=== PATIENT | female | born 1965 | race Caucasian/White ===

== ENCOUNTER 2016-11-29 15:16 | Emergency (ER) | payer BC ==
[~2016-11-29] VITALS: Ht 160 cm; Wt 112.1 kg
[~2016-11-29 15:16] MED LIST: ALBU18002 INH; EPP3/2 IM
[2016-11-29 15:18] VITALS: Ht 160 cm; Wt 112.1 kg
[2016-11-29] MEDS ORDERED: KETOROLAC TROMETHAMINE 30 MG/ML VIAL IV STA (15:25)
[2016-11-29] MEDS ORDERED: SODIUM CHLORIDE 0.9% 1000ML 1,000 ML IV STA (15:25)
[2016-11-29 16:14] LABS: BASO % 0.2 %; BASO ABS # 0.02 K/uL (0-0.2); COMPLETE YES; HEMATOCRIT 47.3 % (37-47); IG% 0.1 %; LYMPH ABS # 2.02 K/uL (1.2-3.4); MEAN CELL VOLUME 88.6 fL (80-100); MEAN CORPUSCULAR HEMOGLOBIN 29.8 pg (25-34); MEAN CORPUSCULAR HGB CONC 33.6 g/dl (32-36); MEAN PLATELET VOLUME 10.4 fL (7.4-10.4); MONO % 8.3 %; NEUT % 68.4 %; PLATELET COUNT 285 K/uL (130-400); RED BLOOD COUNT 5.34 M/uL (4.2-5.4); WHITE BLOOD COUNT 9.17 K/uL (4.8-10.8)
--- NOTE | 2016-11-29 16:30 | DIAGNOSTIC IMAGING REPORT ---
KUB CLINICAL HISTORY: right flank pain eval for stone flank pain COMPARISON STUDY: No previous studies for comparison. FINDINGS: The soft tissues, psoas shadows, renal outlines and intestinal gas pattern appear normal. There is no evidence for bowel obstruction. No abnormal abdominal calcifications are seen. IMPRESSION: Normal study. Electronically signed by: Lloyd Herring M.D. 11/29/2016 4:28 PM Dictated Date/Time: 11/29/2016 4:28 PM
[2016-11-29 16:37] LABS: BUN/CREATININE RATIO 15.3 (10-20); CALCIUM 9.7 mg/dl (8.5-10.1); CREATININE 0.91 mg/dl (0.60-1.20); POTASSIUM 3.8 mmol/L (3.5-5.1)
[2016-11-29 16:43] LABS: URINE APPEARANCE CLEAR (CLEAR); URINE BILIRUBIN NEG (NEG); URINE COLOR YELLOW; URINE NITRITE NEG (NEG); URINE PH 6.5 (4.5-7.5); URINE SPECIFIC GRAVITY 1.016 (1.000-1.030); UROBILINOGEN NEG (NEG)
[2016-11-29 16:46] LABS: MANUAL MICROSCOPIC REQUIRED? NO; REVIEW REQ? YES
[2016-11-29 16:53] LABS: URINE MUCUS PRESENT (NONE PRSENT)
[2016-11-29] MEDS ORDERED: SULF800T23 PO (17:13)
[2016-11-29 17:24] VITALS: BP 152/92; PULSE 93; TEMP 36.9; O2SAT 96
[2016-11-29] MEDS ORDERED: ACET-1256 PO (19:30)
--- NOTE | 2016-11-29 22:35 | EMERGENCY ROOM VISIT NOTE ---
History Report prepared by Bandar: Verna Stiles Under the Supervision of: Dr. Joel Silva M.D. First contact with patient: 15:19 Chief Complaint: FLANK PAIN Stated Complaint: RIGHT SIDE PAIN History of Present Illness The patient is a 51 year old female who presents to the Emergency Room with complaints of worsening right flank pain starting a couple days ago. The pain worsened last night. She states that pain feels like her previous kidney stones. She reports nausea and pain in her flank after urination. She otherwise denies any urinary symptoms such as frequency or burning. She had some blood spotting in her undergarment which she thinks is from her urine as she had a hysterectomy. She denies any fever or vomiting. She has had a hysterectomy, cholecystectomy, and ERCP. Source of History: patient Onset: couple days ago Position: other (right flank) Quality: other (like kidney stone) Timing: worsening Associated Symptoms: + nausea, No fevers, No vomiting Note: Pt reports pain after urination, spotting. Review of Systems See HPI for pertinent positives & negatives. A total of 10 systems reviewed and were otherwise negative. Past Medical & Surgical Medical Problems: (1) Ac Myocard Infarc Oth Anter Wall,Init Episode Care (2) Ac Myocard Infarct,Oth Inferior Wall,Init Epis Car (3) Acute cholecystitis with chronic cholecystitis (4) Appendicitis Nos (5) Calculus Of Kidney (6) Hydronephrosis of left kidney (7) Left ureteral stone (8) Lumbago (9) Pyelonephritis Nos (10) Recurrent kidney stones (11) Vertigo Surgical Problems: (1) History of appendectomy (2) History of delivery (3) History of cholecystectomy Family History FH: cancer Heart disease Hypertension Social History Smoking Status: Never Smoker Alcohol Use: none Drug Use: none Marital Status: Housing Status: lives with family Occupation Status: employed Current/Historical Medications Scheduled Sulfa/Trimethoprim (Bactrim Ds 800MG/160MG), 1 TAB PO BID Scheduled PRN Acetaminophen (Tylenol), 1,000 MG PO Q6H PRN for Pain Albuterol Sulfate (Proair Respiclick), 2 PUFFS INH QID PRN for Shortness of Breath Diphenhydramine Hcl (Benadryl Allergy), 25 MG PO DAILY PRN for ALLERGIC REACTION Epinephrine (Epipen), 0.3 MG IM UD PRN for ALLERGIC REACTION Ranitidine (Zantac), 150 MG PO DAILY PRN for Stomach Upset Allergies Coded Allergies: Aspirin (Verified Allergy, Severe, RASH AND SOME DIFFICULT BREATHING, 05/19) NSAIDs (Verified Allergy, Severe, RASH-- SOB ALSO WITH IBUPROFEN, 05/15/16 ) Adhesives (Unverified Allergy, Mild, RASH, 05/15/16) Nickel (Verified Allergy, Mild, CANT WEAR EARRING, RASH AND ITCHY, ) BEE STING (Verified Allergy, Unknown, RASH, SOB, HIVES, 05/15/16) Quinolones (Verified Allergy, Unknown, RASH WITH CIPRO, 05/15/16) Physical Exam Vital Signs Date Time Temp Pulse Resp B/P (MAP) Pulse Ox O2 Delivery O2 Flow Rate FiO2 11/29/16 17:24 36.9 93 16 152/92 96 11/29/16 15:18 36.9 93 16 152/92 96 Room Air Physical Exam Constitutional: Vital signs reviewed. Eyes: Pupils are equal round reactive to light. Conjunctiva are noninjected. ENT: Pharynx is clear without erythema or exudate. Mucous membranes are moist. Neck supple without meningeal signs. Respiratory: Clear to auscultation bilaterally. Breath sounds are equal bilaterally. Cardiovascular: Regular rate and rhythm. No rubs or gallops. GI: Soft, nondistended and nontender. Bowel sounds are present. Musculoskeletal: No peripheral edema. No CVA tenderness. Integumentary: No cyanosis. Neurological: The patient is awake and alert. No focal deficits. Psychiatric: Normal affect. Medical Decision & Procedures ER Provider Diagnostic Interpretation: X-ray results as stated below per interpretation by me and the radiologist: KUB CLINICAL HISTORY: right flank pain eval for stone flank pain COMPARISON STUDY: No previous studies for comparison. FINDINGS: The soft tissues, psoas shadows, renal outlines and intestinal gas pattern appear normal. There is no evidence for bowel obstruction. No abnormal abdominal calcifications are seen. IMPRESSION: Normal study. Electronically signed by: Lloyd Herring M.D. 11/29/2016 4:28 PM Dictated Date/Time: 11/29/2016 4:28 PM Laboratory Results 11/29/16 16:00 Red Blood Count 5.34, Mean Corpuscular Volume 88.6, Mean Corpuscular Hemoglobin 29.8, Mean Corpuscular Hemoglobin Concent 33.6, Mean Platelet Volume 10.4, Neutrophils (%) (Auto) 68.4, Lymphocytes (%) (Auto) 22.0, Monocytes (%) (Auto) 8.3, Eosinophils (%) (Auto) 1.0, Basophils (%) (Auto) 0.2, Neutrophils # (Auto) 6.27, Lymphocytes # (Auto) 2.02, Monocytes # (Auto) 0.76, Eosinophils # (Auto) 0.09, Basophils # (Auto) 0.02 11/29/16 16:00 Test 11/29/16 16:00 White Blood Count 9.17 K/uL (4.8-10.8) Red Blood Count 5.34 M/uL (4.2-5.4) Hemoglobin 15.9 g/dL (12.0-16.0) Hematocrit 47.3 % (37-47) Mean Corpuscular Volume 88.6 fL (80-100) Mean Corpuscular Hemoglobin 29.8 pg (25-34) Mean Corpuscular Hemoglobin Concent 33.6 g/dl (32-36) Platelet Count 285 K/uL (130-400) Mean Platelet Volume 10.4 fL (7.4-10.4) Neutrophils (%) (Auto) 68.4 % Lymphocytes (%) (Auto) 22.0 % Monocytes (%) (Auto) 8.3 % Eosinophils (%) (Auto) 1.0 % Basophils (%) (Auto) 0.2 % Neutrophils # (Auto) 6.27 K/uL (1.4-6.5) Lymphocytes # (Auto) 2.02 K/uL (1.2-3.4) Monocytes # (Auto) 0.76 K/uL (0.11-0.59) Eosinophils # (Auto) 0.09 K/uL (0-0.5) Basophils # (Auto) 0.02 K/uL (0-0.2) RDW Standard Deviation 42.0 fL (36.4-46.3) RDW Coefficient of Variation 12.9 % (11.5-14.5) Immature Granulocyte % (Auto) 0.1 % Immature Granulocyte # (Auto) 0.01 K/uL (0.00-0.02) Urine Color YELLOW Urine Appearance CLEAR (CLEAR) Urine pH 6.5 (4.5-7.5) Urine Specific [place] 1.016 (1.000-1.030) Urine Protein NEG (NEG) Urine Glucose (UA) NEG (NEG) Urine Ketones NEG (NEG) Urine Occult Blood NEG (NEG) Urine Nitrite NEG (NEG) Urine Bilirubin NEG (NEG) Urine Urobilinogen NEG (NEG) Urine Leukocyte Esterase SMALL (NEG) Urine WBC (Auto) 5-10 /hpf (0-5) Urine RBC (Auto) 0-4 /hpf (0-4) Urine Hyaline Casts (Auto) 0 /lpf (0-5) Urine Epithelial Cells (Auto) 10-20 /lpf (0-5) Urine Bacteria (Auto) NEG (NEG) Urine Mucus PRESENT (NONE PRSENT) Anion Gap 4.0 mmol/L (3-11) Est Creatinine Clear Calc Drug Dose 89.1 ml/min Estimated GFR () 85.3 Estimated GFR (Non- 73.6 BUN/Creatinine Ratio 15.3 (10-20) Calcium Level 9.7 mg/dl (8.5-10.1) Total Bilirubin 0.5 mg/dl (0.2-1) Direct Bilirubin 0.1 mg/dl (0-0.2) Aspartate Amino Transf (AST/SGOT) 17 U/L (15-37) Alanine Aminotransferase (ALT/SGPT) 29 U/L (12-78) Alkaline Phosphatase 118 U/L (45-117) Total Protein 8.1 gm/dl (6.4-8.2) Albumin 3.9 gm/dl (3.4-5.0) Lipase 122 U/L (73-393) Laboratory results as reviewed by me. Medications Administered Medications (Trade) Dose Ordered Sig/Dileep Route Start Time Stop Time Status Last Admin Dose Admin Sodium Chloride 1,000 ml @ 999 mls/hr Q1H1M STAT IV 11/29/16 15:25 11/29/16 16:25 DC 11/29/16 16:18 999 MLS/HR Ketorolac Tromethamine (Toradol Inj) 10 mg NOW STAT IV 11/29/16 15:25 11/29/16 15:28 DC 11/29/16 16:19 10 MG ED Course 1522: The patient was evaluated in room B8. A complete history and physical exam was performed. 1525: Toradol Inj 10 mg IV, NSS 1000 ml @ 999 mls/hr IV. 1710: Upon reevaluation, the patient appeared to have improvement of her symptoms. I discussed luis's findings with her. She will follow up with her PCP. She verbalized agreement of the treatment plan. She was discharged home. Medical Decision This is a 51-year-old female who presents with right flank pain. Differential diagnosis includes renal colic, hydronephrosis, strain, choledocholithiasis, irritable bowel syndrome. I did perform a limited focused review of portions of the patient's old chart on the electronic medical record. The patient was here in May for right flank pain. CT showed 2 nonobstructive right kidney stones. Medication Reconciliation: I attest that I have personally reviewed the patient' s current medication list. Blood Pressure Screening: Patient was found to have an elevated blood pressure and was referred to their primary doctor for recheck and further treatment. I did evaluate the patient as noted above. IV access was established. I did order and personally review the patient's KUB x-ray as described above. I did order and review the patient's blood work as noted in the electronic medical record. Her labs are unremarkable. I did order a urinalysis which showed some signs of infection but no blood. I did treat patient with Toradol IV and normal saline IV. I did discuss the test results with the patient. At this time the cause of her pain is unclear. I did recommend close follow up with her doctor for further evaluation. She was given a prescription for Bactrim. Impression Primary Impression: Right flank pain Additional Impression: UTI (urinary tract infection) Scribe Attestation The scribe's documentation has been prepared under my direct and personally reviewed by me in its entirety. I confirm that the note above accurately reflects all work, treatment, procedures, and medical decision making performed by me. Departure Information Dispostion Home / Self-Care Prescriptions Sulfa/Trimethoprim (Bactrim Ds 800MG/160MG) Tab 1 TAB PO BID, #14 TAB Prov: Joel Silva M.D. 11/29/16 Referrals Stephan Hylton M.D. (PCP) Forms HOME CARE DOCUMENTATION FORM, IMPORTANT VISIT INFORMATION Patient Instructions ED Flank Pain Uncertain Cause, ED UTI Cystitis Female, My [facility] Additional Instructions You have been examined and treated today on an emergency basis only. This is not a substitute for, or an effort to provide, complete comprehensive medical care. It is impossible to recognize and treat all injuries or illnesses in a single emergency department visit. It is therefore important that you follow up closely with your physician. Call as soon as possible for an appointment. Return for worsening symptoms or if you develop fever, vomiting, tenderness to the right lower abdomen or any other concerning symptoms. Problem Qualifiers Additional Impression: UTI (urinary tract infection) Urinary tract infection type: site unspecified Hematuria presence: without hematuria Qualified Codes: N39.0 - Urinary tract infection, site not specified
[2016-11-29] MEDS ORDERED: ZNTT/150 PO (23:11)
[2016-11-29] MEDS ORDERED: DIPH25CA65 PO (23:11)
== END 2016-11-29 17:25 | disposition home or self-care (01) ==
LOC: C.EDB 15:17
DX: R10.9 Unspecified abdominal pain (principal); N39.0 Urinary tract infection, site not specified; R11.0 Nausea; I25.2 Old myocardial infarction; Z87.448 Personal history of other diseases of urinary system; Z82.49 Family history of ischemic heart disease and other diseases of the circulatory system

== ENCOUNTER 2016-12-27 15:52 | Emergency (ER) | payer BC ==
[~2016-12-27] VITALS: Ht 160 cm; Wt 116.0 kg
[~2016-12-27 15:52] MED LIST changes: +ACET-1256 PO; +DIPH25CA65 PO; +SULF800T23 PO; +ZNTT/150 PO
[2016-12-27 15:59] VITALS: BP 140/86; PULSE 80; TEMP 36.7; O2SAT 96; Ht 160 cm; Wt 116.0 kg
[2016-12-27] MEDS ORDERED: DIPHTHERIA/TETANUS/PERTUSSIS 0.5 ML SYR/VIAL IM. ONE (16:30)
--- NOTE | 2016-12-27 16:30 | EMERGENCY ROOM VISIT NOTE ---
ED Visit Note First contact with patient: 16:11 CHIEF COMPLAINT: Right hand laceration HISTORY OF PRESENT ILLNESS: This 51-year-old female patient presents to the emergency department ambulatory after cutting the right fifth digit approximately 30 minutes ago. The patient states that she cut it on a broken piece of glass. The bleeding stopped shortly after the injury and there is no weakness or numbness of the area. Tetanus shot is not up-to-date. Full range of motion of the finger. The patient denies any pain. REVIEW OF SYSTEMS: A 6 system review of systems was completed with positives and pertinent negatives listed in the HPI. ALLERGIES: Adhesives, aspirin, NSAIDs, nickel, quinolones, bee stings MEDICATIONS: See med list PMH: Appendectomy, kidney stones, cholecystectomy SOCIAL HISTORY: Patient lives locally with family. Nonsmoker, denies alcohol use. PHYSICAL EXAM: Vital Signs: Reviewed Nurse's notes, vital signs stable. GENERAL : This is a 51-year-old female, in no acute distress, well-developed, well- nourished. SKIN: There is a laceration to the lateral aspect of the right fifth finger which is 1 cm long. It is superficial and the edges only mildly gape apart with traction, but lay well without traction. There is no foreign material in the wound and it looks clean. There is no active bleeding. No deep structures such as tendons or nerves are seen in the base of the wound. Extension and flexion of the finger is full and strong. Sensation to pain and light touch is intact. EMERGENCY DEPARTMENT COURSE: I examined the patient. Verbal consent was obtained to perform the procedure. The laceration was cleaned with betadine and sterile saline and there was no bleeding. The edges of the laceration were approximated and secured with 3 layers of Dermabond glue with good wound approximation. The patient tolerated the procedure well. The patient was given a tetanus booster. The patient was discharged home in stable condition. DIAGNOSIS: Finger laceration Problem List Medical Problems: (1) Acute cholecystitis with chronic cholecystitis Status: Resolved (2) Recurrent kidney stones Status: Chronic (3) Vertigo Status: Chronic Surgical Problems: (1) History of appendectomy Status: Resolved (2) History of delivery Status: Resolved (3) History of cholecystectomy Status: Resolved Current/Historical Medications Scheduled Sulfa/Trimethoprim (Bactrim Ds 800MG/160MG), 1 TAB PO BID Scheduled PRN Acetaminophen (Tylenol), 1,000 MG PO Q6H PRN for Pain Albuterol Sulfate (Proair Respiclick), 2 PUFFS INH QID PRN for Shortness of Breath Diphenhydramine Hcl (Benadryl Allergy), 25 MG PO DAILY PRN for ALLERGIC REACTION Epinephrine (Epipen), 0.3 MG IM UD PRN for ALLERGIC REACTION Ranitidine (Zantac), 150 MG PO DAILY PRN for Stomach Upset Allergies Coded Allergies: Aspirin (Verified Allergy, Severe, RASH AND SOME DIFFICULT BREATHING, 05/19) NSAIDs (Verified Allergy, Severe, RASH-- SOB ALSO WITH IBUPROFEN, 05/15/16 ) Adhesives (Unverified Allergy, Mild, RASH, 05/15/16) Nickel (Verified Allergy, Mild, CANT WEAR EARRING, RASH AND ITCHY, ) BEE STING (Verified Allergy, Unknown, RASH, SOB, HIVES, 05/15/16) Quinolones (Verified Allergy, Unknown, RASH WITH CIPRO, 05/15/16) Vital Signs Date Time Temp Pulse Resp B/P (MAP) Pulse Ox O2 Delivery O2 Flow Rate FiO2 12/27/16 15:59 36.7 80 18 140/86 96 Room Air Medications Administered Medications (Trade) Dose Ordered Sig/Dileep Route Start Time Stop Time Status Last Admin Dose Admin Diphtheria/ Pertussis/Tetanus Vacc (Adacel Inj) 0.5 ml ONCE ONCE IM. 12/27/16 16:30 12/27/16 16:31 DC 12/27/16 16:24 0.5 ML Departure Information Impression Primary Impression: Laceration of finger Dispostion Home / Self-Care Condition GOOD Referrals No Doctor, Assigned (PCP) Patient Instructions My [facility] Additional Instructions Allow the skin glue to follow-up on its own in the next few days. Do not apply any ointments or creams to the skin glue. You may wash your hands and shower normally. For pain control, you can use the following [id number] medicines (if >12 yo): - Regular strength (325mg/tab) Tylenol (acetaminophen) 2 tabs every 4-6 hours as needed. Do not exceed 12 tablets in a 24 hour period. Avoid taking more than 4 grams (4000 mg) of Tylenol per day. This includes any other sources of acetaminophen you may take on a regular basis. - Regular strength (200 mg/tab) Advil (ibuprofen) 1-2 tabs every 4-6 hours as needed. Do not exceed a dose of 3200 mg per day.
== END 2016-12-27 16:41 | disposition home or self-care (01) ==
LOC: C.EDB 15:55 → C.EDD 16:41
DX: S61.216A Laceration without foreign body of right little finger without damage to nail, initial encounter (principal); W45.8XXA Other foreign body or object entering through skin, initial encounter; Z23 Encounter for immunization; Z87.442 Personal history of urinary calculi; Z90.49 Acquired absence of other specified parts of digestive tract; Z98.890 Other specified postprocedural states; Z88.6 Allergy status to analgesic agent; Z88.8 Allergy status to other drugs, medicaments and biological substances; Z91.030 Bee allergy status; Z91.09 Other allergy status, other than to drugs and biological substances